=== PATIENT | female | born 1995 | race Caucasian/White ===

== ENCOUNTER 2017-02-20 23:03 | Emergency (ER) | payer BC ==
[~2017-02-20] VITALS: Ht 154.9 cm; Wt 45.0 kg
[~2017-02-20 23:03] MED LIST: ZOFRAN4 MG PO
[2017-02-21 01:19] LABS: HEMATOCRIT 34.5 % (36.0-46.0); MCH 30.8 PG (29.0-34.0); MCHC 34.2 G/DL (30.0-36.0); MCV 90.1 FL (83-99); MEAN PLAT.VOLUME 9.9 uM^3 (9.5-12.4); PLATELET COUNT 257 K/uL (156-360); RBC DIS.WIDTH-CV 11.9 % (11.8-14.6); RBC DIS.WIDTH-SD 39.1 % (39-53); RED BLOOD COUNT 3.83 M/uL (3.80-5.20); WHITE BLOOD COUNT 8.9 K/uL (4.1-10.2)
[2017-02-21 01:31] LABS: CHLORIDE 108 mEq/L (99-109); POTASSIUM 3.1 mEq/L (3.7-5.4); SODIUM 137 mEq/L (136-147)
[2017-02-21 01:33] LABS: GLUCOSE 95 mg/dL (70-99)
[2017-02-21 01:34] LABS: ANION GAP 8 MEQ/L (2-14)
[2017-02-21 01:37] LABS: GFR ESTIMATE (CALCULATED) > 59 mL/min/
[2017-02-21 01:38] LABS: UREA NITROGEN (BUN) 13 mg/dL (9-23)
[2017-02-21 01:50] LABS: QUANTITATIVE HCG < 4.0 MIU/ML
[2017-02-21] MEDS ORDERED: IMITREX25 MG PO (02:21)
[2017-02-21] MEDS ORDERED: REGLAN10 MG PO (02:21)
[2017-02-21 02:42] VITALS: BP 120/71
== END 2017-02-21 02:44 | disposition home or self-care (01) ==
LOC: EME 23:03
PROVIDERS: Emergency Medicine
DX: R51 Headache (principal); R94.31 Abnormal electrocardiogram [ECG] [EKG]
CPT/HCPCS: 80048; 84702; 85027; 93005; 99281; 99285; J2765; J3030; J7030